=== PATIENT | male | born 1980 | race African-American/Black ===

== ENCOUNTER 2016-08-24 09:51 | Emergency (ER) | payer OTHER ==
[~2016-08-24] VITALS: Ht 165.1 cm; Wt 68.9 kg
[~2016-08-24 09:51] MED LIST: AMOXICILLIN500 MG PO; PERCOCET 5/31 TABLET PO
[2016-08-24] MEDS ORDERED: ULTRAM50 MG PO (11:08)
[2016-08-24] MEDS ORDERED: PEN-VEE K,VEET500 MG PO (11:08)
[2016-08-24] MEDS ORDERED: MOTRIN800 MG PO (11:08)
[2016-08-24 11:22] VITALS: BP 130/81
== END 2016-08-24 11:23 | disposition home or self-care (01) ==
LOC: EXP 09:51 → EME 09:51 → EXP 11:23
DX: K02.9 Dental caries, unspecified (principal); S02.5XXA Fracture of tooth (traumatic), initial encounter for closed fracture
CPT/HCPCS: 99281; 99284

== ENCOUNTER 2016-08-30 13:05 | Emergency (ER) | payer OTHER ==
[~2016-08-30] VITALS: Ht 165.1 cm; Wt 67.5 kg
[~2016-08-30 13:05] MED LIST changes: +MOTRIN800 MG PO; +PEN-VEE K,VEET500 MG PO; +ULTRAM50 MG PO
[2016-08-30 13:40] VITALS: BP 125/73
== END 2016-08-30 15:20 | disposition left against medical advice (07) ==
LOC: EME 13:05
DX: K08.89 Other specified disorders of teeth and supporting structures (principal); Z53.21 Procedure and treatment not carried out due to patient leaving prior to being seen by health care provider; R22.0 Localized swelling, mass and lump, head; F17.200 Nicotine dependence, unspecified, uncomplicated

== ENCOUNTER 2017-05-12 21:31 | Emergency (ER) | payer OTHER ==
[~2017-05-12] VITALS: Ht 165.1 cm; Wt 67.9 kg
[2017-05-13] MEDS ORDERED: PERCOCET 5/31 TABLET PO (03:57)
[2017-05-13] MEDS ORDERED: CLEOCIN300 MG PO (03:57)
[2017-05-13 04:40] VITALS: BP 126/72
== END 2017-05-13 04:42 | disposition home or self-care (01) ==
LOC: EME 21:31
PROC: 0H91XZX Drainage of Face Skin, External Approach, Diagnostic (ICD-10-PCS; principal; 2017-05-13)
DX: L02.01 Cutaneous abscess of face (principal)
CPT/HCPCS: 87205; 99281; 99284

== ENCOUNTER 2017-11-14 01:16 | Emergency (ER) | payer OTHER ==
[~2017-11-14] VITALS: Ht 165.1 cm; Wt 72.8 kg
[~2017-11-14 01:16] MED LIST changes: +CLEOCIN300 MG PO
[2017-11-14 01:46] LABS: HEMATOCRIT 34.1 % (38.0-50.0); MCH 23.3 PG (29.0-34.0); MCHC 32.3 G/DL (30.0-36.0); MCV 72.1 FL (86-99); PLATELET COUNT 270 K/uL (156-360); RBC DIS.WIDTH-CV 14.8 % (11.8-14.6); RBC DIS.WIDTH-SD 38.6 % (39-53); RED BLOOD COUNT 4.73 M/uL (4.00-5.50); WHITE BLOOD COUNT 9.1 K/uL (4.1-10.2)
[2017-11-14 01:50] LABS: CHLORIDE 108 mEq/L (99-109); SODIUM 140 mEq/L (136-147)
[2017-11-14 01:52] LABS: GLUCOSE 86 mg/dL (70-99)
[2017-11-14 01:56] LABS: CREATININE 1.2 mg/dL (0.6-1.3); GFR ESTIMATE (CALCULATED) > 59 mL/min/ (58.99-99999)
[2017-11-14 01:57] LABS: UREA NITROGEN (BUN) 13 mg/dL (9-23)
[2017-11-14 02:04] LABS: TROP-I INTERPRETATION NEGATIVE; TROPONIN-I < 0.01 ng/mL (0.0-0.30)
[2017-11-14] MEDS ORDERED: IBU600 MG PO (03:17)
[2017-11-14 03:51] VITALS: BP 116/68
== END 2017-11-14 03:52 | disposition home or self-care (01) ==
LOC: EME → EDBD 01:16 → EME 03:52
PROVIDERS: Emergency Medicine
DX: S29.011A Strain of muscle and tendon of front wall of thorax, initial encounter (principal); R07.89 Other chest pain; X50.0XXA Overexertion from strenuous movement or load, initial encounter; Y93.89 Activity, other specified; F17.200 Nicotine dependence, unspecified, uncomplicated
CPT/HCPCS: 71046; 80048; 84484; 85027; 93005